=== PATIENT | male | born 2000 | race Asian ===

== ENCOUNTER 2022-09-13 21:10 | Emergency (ER) | payer OTHER, SELFPAY ==
[2022-09-13 21:24] VITALS: BP 106/65; PULSE 89; RESP 16; TEMP 38.2; O2SAT 100; BMI 19.8
[2022-09-13 22:13] LABS: Influenza A - CEPHEID Flu A NEGATIVE (NEGATIVE); Influenza B - CEPHEID Flu B NEGATIVE (NEGATIVE); Respiratory Syncytial Virus Negative (Negative)
[2022-09-13 22:19] LABS: COVID-19 CEPHEID 4-PLEX PCR Negative (Negative)
[2022-09-14 01:39] VITALS: BP 113/55; PULSE 83; RESP 18; TEMP 37.2; O2SAT 99
--- NOTE | 2022-09-14 01:49 | PC.NURSE ---
pt states pain in lower back hurts the worst of stated pain sites. abd px is intermittent, BT's present in x4 quads. date of last bm 09/14/2022. BM was moderate size diarrhea.
[2022-09-14 01:54] VITALS: TEMP 37.2
[2022-09-14] MEDS: ACETAMINOPHEN 325 MG TABLET 975 MG PO (01:54)
--- NOTE | 2022-09-14 01:58 | ED.FEVER ---
HPI - Fever General Chief Complaint: Fever Stated Complaint: body pain/nausea/chills x1 day Time Seen by Provider: 09/13/22 21:19 Source: patient Mode of arrival: Ambulatory History of Present Illness HPI Narrative: 22-year-old male with history of migraines, is a daily smoker and has a chief complaint of low-grade fever, body aches, headache, ear pain, runny nose, cough, nausea, vomiting and diarrhea. He denies any recent travel, has had no bad food and states he may have been around other people with similar symptoms. He denies recent antibiotic use. He is not significantly short of breath and denies any neck pain. He is not taken any Tylenol or Motrin because he did not have any at work. He denies any urinary complaints Related Data Allergies Allergy/AdvReac Type Severity Reaction Status Date / Time nickel Allergy Verified 09/14/22 01:37 Review of Systems Review of Systems Narrative: GENERAL: See HPI HEENT: See HPI RESPIRATORY: See HPI CARDIOVASCULAR: Denies chest pain, palpitations, orthopnea, edema, GASTROINTESTINAL: See HPI : Denies dysuria, frequency, incontinence, hematuria, urinary retention. MUSCULOSKELETAL: denies weakness, joint pain, or bony pain SKIN: Denies rash, skin lesions, or other NEUROLOGIC: Denies weakness, headache, numbness, change in speech, confusion, seizures, incoordination. PSYCHIATRIC: No concerning psychosocial issues. 12 point review of systems is negative except for those stated above Patient History Social History Smoking Status: Current every day smoker Smoking Status: Current every day smoker tobacco type: vaping alcohol intake frequency: holidays/special occasions only Substance Use Type: does not use Exam Narrative Exam Narrative: GENERAL: [22] year old patient appears stated age. Well-developed patient, in mild distress. HEAD: Atraumatic. Normocephalic. EYES: Pupils equal round and reactive. Extraocular motions intact. No scleral icterus. No injection or drainage. ENT: Nose without bleeding, purulent drainage. Throat without erythema, tonsillar hypertrophy or exudate. Airway patent. NECK: Trachea midline. Non tender CARDIOVASCULAR: Regular rate and rhythm without murmurs, gallops, or rubs. RESPIRATORY: Clear to auscultation. Breath sounds equal bilaterally. No wheezes, rales, or rhonchi. GASTROINTESTINAL: Abdomen soft, non-tender, nondistended. EXTREMITIES: No edema or joint tenderness. BACK: Nontender without deformity or crepitance. No flank tenderness. NEURO: AOx3. SKIN: No rash or erythema of visible areas Initial Vital Signs Initial Vital Signs: Vital Signs Temperature 100.8 F H 09/13/22 21:24 Pulse Rate 89 09/13/22 21:24 Respiratory Rate 16 09/13/22 21:24 Blood Pressure 106/65 09/13/22 21:24 Pulse Oximetry 100 09/13/22 21:24 Oxygen Delivery Method Room Air 09/13/22 21:24 Course Orders Ordered: Discontinued Medications Acetaminophen (Acetaminophen 325 Mg Tablet) 975 mg PO NOW ONE Stop: 09/14/22 01:39 Last Admin: 09/14/22 01:54 Dose: 975 mg Documented By: AMBROCIO Vital Signs Vital signs: Vital Signs - 8 hr 09/13/22 21:24 09/14/22 01:39 09/14/22 01:54 Temperature 100.8 F H 98.9 F 98.9 F Pulse Rate 89 83 Respiratory Rate 16 18 Blood Pressure 106/65 113/55 L Pulse Oximetry 100 99 Oxygen Delivery Method Room Air Room Air MDM - Fever Lab Data Labs: Lab Results 09/13/22 Range/Units 21:29 SARS-CoV-2 (PCR) Negative (Negative) Influenza A (RT-PCR) Flu a negative (NEGATIVE) Influenza B (RT-PCR) Flu b negative (NEGATIVE) RSV (PCR) Negative (Negative) MDM Narrative Medical decision making narrative: [22] year old patient presents with body aches, headache, nasal congestion, sore throat, dry cough Multiple etiologies for patient's symptoms considered including, but not limited to: [Flu, COVID, RSV, pneumonia versus other viral upper respiratory infection] No prior charts available for review Primary Historian: patient Labs reviewed and interpreted by myself: Respiratory swab negative for flu, COVID, RSV Patient with very reassuring history and physical exam, no meningeal signs, no respiratory distress or increased work of breathing. Findings most consistent with viral syndrome, respiratory swab negative for COVID, flu and RSV, likely another viral etiology. Patient's symptoms improved over duration of stay with above-stated therapies. Findings and discharge diagnosis discussed with patient/family followed by verbalization of understanding Return precautions discussed with patient/family whom verbalize understanding of diagnosis and plan Discharge Plan Departure Patient Disposition: Home Clinical Impression: Viral syndrome Instructions: DI for Fever (Symptom) -- Adult Activity Restrictions/Additional Instructions: *You have been diagnosed with [various symptoms due to viral upper respiratory infection] *What to do: *Please consider the use of [id number] antihistamines such as cetirizine syrup which can dry the secretions that are causing many of these symptoms. As we discussed, a tsp of honey is a great option to help with cough if needed. Fever: *Fever is temperature over 101F, it is a common feature of most viral and bacterial infections *Fever tends to come back once the Tylenol (acetaminophen) or Motrin (ibuprofen) wears off as these medications do not treat the underlying cause, just the fever itself *Treat the patient, not the number. If your child is running around and playing you don?t have to treat the fever, however, if they seem grumpy or uncomfortable it is reasonable to treat fever *Consider alternating between Tylenol and Motrin so you will be giving medications prior to the previous dose wearing off: * your history and physical exam are very reassuring and there is no indication that the symptoms are due to a bacterial infection, therefore there is no indication for antibiotics. *Please follow up with your primary care provider in 2-3 days, call for an appointment. Let them know you were seen in the Emergency Department and that we ask that you be seen in follow up. We will electronically transmit a record of today's note if your PCP is in our system *If you do not have a primary care provider please contact the [facility] Resource line at [phone]. They will ask some questions about your medical history and help get you set up with a doctor in the community. *Return to Emergency Department if you should have any new, worsening or concerning symptoms increased work of breathing with flaring of nostrils, using belly to breathe, persistent vomiting, or other bothersome symptoms Stand Alone Forms: Patient Portal/API, Work Release Note
== END 2022-09-14 02:12 | disposition home or self-care (01) ==
PROVIDERS: Emergency Provider Emergency Medicine
DX: J06.9 Acute upper respiratory infection, unspecified (principal); F17.200 Nicotine dependence, unspecified, uncomplicated
CPT/HCPCS: 0241U; 99283